=== PATIENT | male | born 1955 | race Caucasian/White ===

== ENCOUNTER 2020-01-05 08:37 | Day surgery (SDC) | payer MEDICARE, MEDICAID ==
[~2020-01-05] VITALS: Ht 175.3 cm; Wt 68.9 kg
[~2020-01-05 08:37] MED LIST: ASPI-845 PO; CLOP75TA15 PO; ESCI10TA PO; HYDR-3964 PO; METO-292 PO; OMEP20CA15 PO; PROC-8 PO
[2020-01-05] MEDS ORDERED: albumin 25% 100mL bottle x 1 IV PRN (09:00)
[2020-01-05 09:01] VITALS: BP 132/86
[2020-01-05] MEDS ORDERED: LORA-269 PO (09:13)
[2020-01-05] MEDS ORDERED: NITR0.4T51 SL (09:13)
[2020-01-05] MEDS ORDERED: NORT25CA PO (09:13)
[2020-01-05] MEDS ORDERED: ALBU8.5H8 INH (09:13)
== END 2020-01-05 10:10 | disposition home or self-care (01) ==
LOC: SSTAY O 08:37 → MED 3N 08:43 → SSTAY O 10:10
PROVIDERS: ATTEND Radiology Vascular & Interventional Radiology
DX: J90 Pleural effusion, not elsewhere classified (principal); Z53.8 Procedure and treatment not carried out for other reasons; K21.9 Gastro-esophageal reflux disease without esophagitis; I25.10 Atherosclerotic heart disease of native coronary artery without angina pectoris; Z87.891 Personal history of nicotine dependence; Z79.899 Other long term (current) drug therapy; Z79.82 Long term (current) use of aspirin; Z79.01 Long term (current) use of anticoagulants; Z88.0 Allergy status to penicillin; Z88.6 Allergy status to analgesic agent; Z85.038 Personal history of other malignant neoplasm of large intestine; Z85.118 Personal history of other malignant neoplasm of bronchus and lung
CPT/HCPCS: 76705